=== PATIENT | female | born 1985 | race African-American/Black ===

== ENCOUNTER 2020-01-03 14:32 | Emergency (ER) | payer OTHER, SELFPAY ==
[2020-01-03 14:40] VITALS: BP 139/83; PULSE 83; RESP 16; TEMP 36.8; O2SAT 99
--- NOTE | 2020-01-03 15:06 | ED.FEMALEGU ---
HPI - Female Genitourinary General Chief complaint: Urogenital-Female Stated complaint: possible uti Time Seen by Provider: 01/03/20 14:57 Source: patient and RN notes reviewed Mode of arrival: ambulatory Limitations: no limitations History of Present Illness HPI Narrative: Patient presents today complaining of dysuria, urgency, frequency, lower abdominal pressure since last night, worsened since morning. She also notes that she believes there may be blood in her urine. Denies fever, chills or sweats, nausea or vomiting. She has been taking Tylenol and ibuprofen with some relief. Reports history of UTI a few months ago and was placed on Macrobid. MD elicited complaint: dysuria Related Data Allergies Allergy/AdvReac Type Severity Reaction Status Date / Time Sulfa (Sulfonamide Allergy Mild ITCHING Verified 09/06/13 11:35 Antibiotics) azithromycin Allergy Unknown BURNING, Verified 09/06/13 11:35 ITCHING Review of Systems Review of Systems: Narrative: CONSTITUTIONAL: Denies body aches, fever, chills, or sweats. EYES: Denies visual changes, redness, or discharge. ENT: Denies rhinorrhea, congestion, sore throat, or otalgia. CARDIOVASCULAR: Denies chest pain, palpitations, or edema. RESPIRATORY: Denies cough or dyspnea. GASTROINTESTINAL: Denies nausea, vomiting, or diarrhea. + Lower abdominal pressure GENITOURINARY: + Dysuria, hematuria, urgency, frequency SKIN: Denies rash, itching, or wounds. MUSCULOSKELETAL: Denies back pain, joint pain, or myalgia. NEUROLOGIC: Denies headache, numbness, tingling, or weakness. PSYCH: Denies depression or anxiety. [facility] Past Medical History Medical History (Updated 01/03/20 @ 15:12 by Corinne Elliott, [facility], ) Lupus Comments At time of signature, I have reviewed and agree with nursing past medical, surgical, social and family history unless otherwise noted. Please see nursing chart for further information. There is no relevant family history pertinent to the presenting complaint Exam Narrative: Exam Narrative: GENERAL: Well-appearing, well-nourished, and in no acute distress. HEAD: Normocephalic, atraumatic. EYES: EOMI. No redness or drainage. Conjunctivae normal. ENT: Mucous membranes pink and moist. Nares clear. No rhinorrhea. TMs normal bilaterally. Throat normal. Uvula midline. NECK: Normal AROM. Supple. No lymphadenopathy. CHEST: No respiratory distress. Clear to auscultation. HEART: Regular rate and rhythm. No murmur appreciated. Normal peripheral pulses. ABDOMEN: Soft, nondistended, normal active bowel sounds.-CVAT. + Mild suprapubic tenderness MUSCULOSKELETAL: No bony tenderness. EXTREMITIES: Normal range of motion. No edema. SKIN: Warm, dry, no rash. Capillary refill normal. Normal skin turgor. NEURO: No focal deficits. Alert and oriented x3. Gait steady. PSYCH: Normal affect. No signs of depression or anxiety. Course Vital Signs Vital signs: Vital Signs Temperature 98.3 F 01/03/20 14:40 Pulse Rate 83 01/03/20 14:40 Respiratory Rate 16 01/03/20 14:40 Blood Pressure 139/83 01/03/20 14:40 Pulse Oximetry 99 01/03/20 14:40 Temperature 98.3 F 01/03/20 14:40 Pulse Rate 83 01/03/20 14:40 Respiratory Rate 16 01/03/20 14:40 Blood Pressure 139/83 01/03/20 14:40 Pulse Oximetry 99 01/03/20 14:40 Reviewed. Pt has been instructed to follow up with her PCP regarding her elevated blood pressure today. MDM - Female Genitourinary Differential Diagnosis Differential diagnosis: Likely urinary tract infection, vaginitis, cystitis and other (Pyelonephritis, interstitial cystitis) Lab Data Attestation: I reviewed the patient's lab results. Labs: Urine Glucose Negative Reference Range: Negative Urine Bilirubin Negative Reference Range: Negative Urine Ketone Negative
== END 2020-01-03 15:13 | disposition home or self-care (01) ==
PROVIDERS: Emergency Provider Nurse Practitioner
DX: N30.01 Acute cystitis with hematuria (principal); M32.9 Systemic lupus erythematosus, unspecified
CPT/HCPCS: 81003; 87086; 87088; 99213; G0463

== ENCOUNTER 2022-12-28 10:33 | Emergency (ER) | payer BC, SELFPAY ==
--- NOTE | 2022-12-28 10:36 | ED.GENADULT ---
HPI - General Adult General Chief complaint: Skin/Abscess/Foreign Body Stated complaint: BUmps,Lumps, On Butt Time Seen by Provider: 12/28/22 10:35 Source: patient Mode of arrival: ambulatory Limitations: no limitations History of Present Illness HPI narrative: Patient is a 37-year-old female who presents with her 3 days of tenderness and wound to perineum. Patient has been doing Sitz baths and warm compresses but denies any drainage from area. Patient reports she has history of abscesses but has not had 1 in several years. Denies any fever, chills, nausea, vomiting, diarrhea. Related Data Allergies Allergy/AdvReac Type Severity Reaction Status Date / Time Sulfa (Sulfonamide Allergy Mild ITCHING Verified 12/28/22 10:44 Antibiotics) azithromycin Allergy Unknown BURNING, Verified 12/28/22 10:44 ITCHING Review of Systems Review of Systems: All systems reviewed & are unremarkable except as noted in HPI and below Constitutional: Constitutional: Denies body ache(s), Denies chills, Denies fatigue, Denies fever(s), Denies headache(s), Denies malaise and Denies weakness Eyes: Eyes: Denies blurry vision, Denies irritation and Denies loss of vision ENT: Denies otalgia, Denies headache(s), Denies nasal discharge, Denies sinus pain and Denies sore throat Cardiovascular: Cardiovascular: Denies chest pain, Denies irregular heart rhythm and Denies dyspnea Respiratory: Respiratory: Denies dyspnea Gastrointestinal: Gastrointestinal: Denies abdominal pain, Denies melena, Denies hematochezia, Denies diarrhea, Denies nausea and Denies vomiting Musculoskeletal: Musculoskeletal: Denies back pain, Denies myalgias and Denies arthralgias Integumentary/Breasts: Skin/Breast: Denies pruritus, Denies rash and Reports wounds Neurologic: Denies headache(s), Denies loss of vision and Denies weakness Psychiatric: Psychiatric: Reports no additional psychiatric complaints Endocrine: Endocrine: Denies fatigue PMFSH Past Medical History Medical History Lupus Comments At time of signature, agree with nursing past medical, surgical, social and family history. There is no relevant family history pertinent to the presenting complaint. Exam Const: General: cooperative, healthy appearing, comfortable, no acute distress and well nourished Nutritional Appearance: well nourished Orientation/consciousness: patient oriented x3 Limitations: no limitations HENMT: Head: normal to inspection, normocephalic and atraumatic Ears: hearing grossly normal bilaterally and external ears normal Face/Nose/Sinus: Normal external nose present, normal facial exam and face symmetric Face and sinus: normal facial exam and face symmetric Mouth: Yes lip normal Eyes: General: appearance normal, both eyes and all related structures Alignment and Position: alignment normal and position normal Periorbital: periorbital findings normal Eyelids: eyelids normal Pupils: Equal, round and reactive pupils present EOM: EOMs intact bilaterally Neck: Neck: normal visual inspection, full ROM and supple Chest: Chest palpation & inspection: normal inspection of the chest Resp: Effort & Inspection: normal respiratory effort and able to speak in complete sentences Auscultation: clear to auscultation bilaterally Cardio: Rate: regular rate Rhythm: regular rhythm Heart sounds: S1 normal heart sound present and S2 normal heart sound present GI: Inspection: normal to inspection : External Female Exam: No erythema, externally tender, external swelling and No lesion Female genitals images: 1. 2x2 cm area fluctuance. No surrounding erythema or induration. Center point white with appearance of opening. Skin: General skin exam: normal color and no rashes or lesions noted Neuro: General: patient oriented x3 and moves all extremities Cranial nerves: Yes Equal, round and reactive pupils present Speech: normal speec
[2022-12-28 10:59] VITALS: BP 132/89; PULSE 78; RESP 20; TEMP 36.6; O2SAT 100
== END 2022-12-28 11:18 | disposition home or self-care (01) ==
PROVIDERS: Emergency Provider Nurse Practitioner Family
DX: L02.31 Cutaneous abscess of buttock (principal)
CPT/HCPCS: 99213; G0463

== ENCOUNTER 2023-09-11 12:21 | Emergency (ER) | payer BC, SELFPAY ==
[2023-09-11 12:32] VITALS: BP 135/93; PULSE 80; RESP 16; TEMP 36.9; O2SAT 99
--- NOTE | 2023-09-11 12:38 | ED.FEMALEGU ---
HPI - Female Genitourinary General Chief complaint: Urogenital-Female Stated complaint: STD Testing Time Seen by Provider: 09/11/23 12:38 Source: patient and RN notes reviewed Mode of arrival: ambulatory Limitations: no limitations History of Present Illness HPI Narrative: 38-year-old female presents with concern for possible exposure to STDs. She reports her partner called her and told her he was ?having issues down there.? He did not specify any symptoms for positive STDs. She denies having any symptoms, discharge, dysuria, frequency, urgency. At 1st she denied a history of herpes, however her record indicates she was prescribed Valtrex in June for genital herpes, she then admitted that she does have a history of herpes. She denies any current outbreaks. MD elicited complaint: UTI Related Data Home Medications Medication Instructions Recorded Confirmed acyclovir 400 mg tablet mg 09/11/23 09/11/23 ergocalciferol (vitamin D2) 1,250 09/11/23 mcg (50,000 unit) capsule fluticasone propionate 50 intranasal 09/11/23 mcg/actuation nasal spray,suspension loratadine 10 mg tablet mg 09/11/23 meclizine 25 mg tablet mg 09/11/23 sumatriptan succinate 50 mg tablet mg PO 09/11/23 Allergies Allergy/AdvReac Type Severity Reaction Status Date / Time doxycycline Allergy Intermediate lip Verified 12/29/22 08:14 swelling Sulfa (Sulfonamide Allergy Mild ITCHING Verified 12/28/22 10:44 Antibiotics) azithromycin Allergy Unknown BURNING, Verified 12/28/22 10:44 ITCHING Review of Systems Review of Systems: CONSTITUTIONAL: Denies malaise, chills, sweats, or fever. CARDIOVASCULAR: Denies chest pain, palpitations, or edema. RESPIRATORY: Denies cough or dyspnea. GASTROINTESTINAL: Denies abdominal pain, nausea, vomiting, diarrhea GENITOURINARY: Denies vaginal discharge, dysuria, frequency, urgency, suprapubic pressure. Denies flank pain or hematuria. SKIN: Denies rash or itching. MUSCULOSKELETAL: Denies back pain or myalgia. All systems reviewed & are unremarkable except as noted in HPI and below PMFSH Past Medical History Medical History Lupus Comments At time of signature, agree with nursing past medical, surgical, social and family history. There is no relevant family history pertinent to the presenting complaint Exam Narrative: GENERAL: Well-appearing, well-nourished, and in no acute distress. HEAD: Normocephalic. EYES: PERRLA, conjunctivae clear. NECK: Supple. No lymphadenopathy CHEST: Clear to auscultation. No respiratory distress. HEART: Regular rate and rhythm. SKIN: Warm, dry, no rash. NEURO: Alert and oriented x3. PSYCH: Normal mood and affect Course Course Emergency Course: Patient is aware of diagnosis, understands and agrees to treatment plan. Anticipatory guidance given. Patient agrees to follow-up as directed and is aware of reasons to seek care at the emergency department. Portions of this record may have been created with voice recognition software Level of Care: Express Care Visit Vital Signs Vital signs: Vital Signs Temperature 98.4 F 09/11/23 12:32 Pulse Rate 80 09/11/23 12:32 Respiratory Rate 16 09/11/23 12:32 Blood Pressure 135/93 H 09/11/23 12:32 Pulse Oximetry 99 09/11/23 12:32 Oxygen Delivery Room Air 09/11/23 12:32 Temperature 98.4 F 09/11/23 12:32 Pulse Rate 80 09/11/23 12:32 Respiratory Rate 16 09/11/23 12:32 Blood Pressure 135/93 H 09/11/23 12:32 Pulse Oximetry 99 09/11/23 12:32 Oxygen Delivery Room Air 09/11/23 12:32 Reviewed. MDM - Female Genitourinary MDM Narrative Medical decision making narrative: Exam findings show no acute concerns or changes; patient is non-toxic appearing and is in no distress. Patient is appropriate for outpatient treatment and follow-up. Differential Diagnosis Differential diagnosis: Likely urinary tract infect
[2023-09-11] MEDS: cefTRIAXone 500 MG, LIDOCAINE HCL 1% LOCAL INJ 1 ML IM (12:51)
[2023-09-11 22:32] LABS: Trichomonas Vag PCR NOT DETECTED (NOT DETECTE)
[2023-09-11 22:54] LABS: Chlamydia trachomatis NOT DETECTED (NOT DETECTE); Neisseria gonorrhoeae PCR NOT DETECTED (NOT DETECTE)
== END 2023-09-11 13:05 | disposition home or self-care (01) ==
PROVIDERS: Emergency Provider Nurse Practitioner
DX: Z11.3 Encounter for screening for infections with a predominantly sexual mode of transmission (principal)
CPT/HCPCS: 87491; 87591; 87661; 96372; 99214; G0463; J0696

== ENCOUNTER 2023-11-27 17:58 | Emergency (ER) | payer BC, SELFPAY ==
[2023-11-27 18:07] VITALS: BP 135/92; PULSE 81; RESP 16; TEMP 36.7; O2SAT 100
--- NOTE | 2023-11-27 18:29 | ED.FEMALEGU ---
HPI - Female Genitourinary General Chief complaint: Urogenital-Female Stated complaint: Sore Throat/STD Time Seen by Provider: 11/27/23 18:15 Source: patient Mode of arrival: ambulatory Limitations: no limitations History of Present Illness HPI Narrative: Tatiana is a 38-year-old female patient presenting to the clinic today with complaints of sore throat for the past few days as well as a possible STD. She reports that her partner told her that he had Trichomonas. She denies any vaginal discharge or odor. She would like to be treated for Trichomonas and the clinic today. Would also like to have further STD testing with gonorrhea and chlamydia. Wants to make sure she does not have strep as well. States she has some mild throat pain but not difficult to swallow. No fever, chills, body aches, back pain, or abdominal pain. Related Data Home Medications Medication Instructions Recorded Confirmed acyclovir 400 mg tablet mg 09/11/23 09/11/23 ergocalciferol (vitamin D2) 1,250 09/11/23 mcg (50,000 unit) capsule fluticasone propionate 50 intranasal 09/11/23 mcg/actuation nasal spray,suspension loratadine 10 mg tablet mg 09/11/23 meclizine 25 mg tablet mg 09/11/23 sumatriptan succinate 50 mg tablet mg PO 09/11/23 Allergies Allergy/AdvReac Type Severity Reaction Status Date / Time doxycycline Allergy Intermediate lip Verified 12/29/22 08:14 swelling Sulfa (Sulfonamide Allergy Mild ITCHING Verified 12/28/22 10:44 Antibiotics) azithromycin Allergy Unknown BURNING, Verified 12/28/22 10:44 ITCHING sulfamethoxazole Allergy Itching Verified 11/27/23 18:29 [From Bactrim] trimethoprim [From Bactrim] Allergy Itching Verified 11/27/23 18:29 Review of Systems Review of Systems: Pertinent positives per HPI. Patient denies any fever, chills, rash, headache, visual changes, dizziness, cough, runny nose, sore throat, shortness of breath, chest pain, palpitations, nausea, vomiting, diarrhea, constipation, abdominal pain, or any urinary issues. PMFSH Past Medical History Medical History Lupus Comments At the time of my signature, I reviewed and agree with the nursing past medical, surgical, social, and family history. There is no relevant family history pertinent to the patient complaint. Exam Narrative: General: Well-developed, well nourished, in no apparent distress Head: Normocephalic, atraumatic Eyes: Pupils equally round and reactive to light bilaterally, EOM intact, sclera and conjunctive clear, no discharge, lids normal Ears: TMs intact and clear, ear canals clear, no drainage, grossly hearing normal. Nose: Nares patent, clear discharge, no inflammation, no sinus tenderness. Mouth: Oropharynx red without lesions or masses, good dentition, MMM. Neck: Supple, trachea midline, no enlargement of anterior or posterior cervical nodes, no thyroid masses or goiter palpable. Cardio: Regular rate and rhythm, s1 and s2 normal, no murmur appreciated. Resp: Clear to auscultation bilaterally anteriorly and posteriorly, no rhonchi, rales, wheezing or rubs Abdomen: Soft, pliable, bowel sounds present in all quadrants, non-tender to palpation, no organomegly, no CVAT tenderness. : Deferred Course Course Emergency Course: Portions of this record may have been created with voice recognition software. Level of Care: Express Care Visit Vital Signs Vital signs: Vital Signs Temperature 36.7 C 11/27/23 18:07 Pulse Rate 81 11/27/23 18:07 Respiratory Rate 16 11/27/23 18:07 Blood Pressure 135/92 H 11/27/23 18:07 Pulse Oximetry 100 11/27/23 18:07 Oxygen Delivery Room Air 11/27/23 18:07 Temperature 36.7 C 11/27/23 18:07 Pulse Rate 81 11/27/23 18:07 Respiratory Rate 16 11/27/23 18:07 Blood Pressure 135/92 H 11/27/23 18:07 Pulse Oximetry 100 11/27/23 18:07 Oxygen Delivery Room Air
[2023-11-27 18:36] LABS: EDSTREPNEGPOS1 Negative (Negative)
[2023-11-28 20:26] LABS: Trichomonas Vag PCR NOT DETECTED (NOT DETECTE)
[2023-11-28 20:55] LABS: Chlamydia trachomatis NOT DETECTED (NOT DETECTE); Neisseria gonorrhoeae PCR NOT DETECTED (NOT DETECTE)
== END 2023-11-27 18:31 | disposition home or self-care (01) ==
PROVIDERS: Emergency Provider Nurse Practitioner Family
DX: Z20.2 Contact with and (suspected) exposure to infections with a predominantly sexual mode of transmission (principal); J02.9 Acute pharyngitis, unspecified
CPT/HCPCS: 87081; 87491; 87591; 87661; 87880; 99213; G0463

== ENCOUNTER 2025-03-07 11:51 | Emergency (ER) | payer OTHER, SELFPAY ==
[2025-03-07 12:04] VITALS: BP 169/89; PULSE 76; RESP 18; TEMP 36.4; O2SAT 100
--- NOTE | 2025-03-07 12:04 | ED.EYEPROB ---
HPI - Eye Problem General Chief complaint: Eye Problems Stated complaint: left eye irritation Time Seen by Provider: 03/07/25 11:55 Source: patient Mode of arrival: ambulatory Limitations: no limitations History of Present Illness HPI Narrative: Tatiana is a 39 year old female patient presenting to the clinic today with complaints of left eye irritation/redness. She reports she has had watery eyes bilaterally for the past week but woke up this morning with yellow mucopurulent discharge in the left eye with her eye matted shut. Denies any eye injury or visual changes. No fevers, chills, body aches. No URI symptoms. Related Data Allergies Allergy/AdvReac Type Severity Reaction Status Date / Time doxycycline Allergy Intermediate lip Verified 03/07/25 11:53 swelling Sulfa (Sulfonamide Allergy Mild ITCHING Verified 03/07/25 11:53 Antibiotics) azithromycin Allergy Unknown BURNING, Verified 03/07/25 11:53 ITCHING sulfamethoxazole (From Allergy Itching Verified 03/07/25 11:53 Bactrim) trimethoprim (From Bactrim) Allergy Itching Verified 03/07/25 11:53 Review of Systems Review of Systems: Pertinent positives per HPI. Patient denies any fever, chills, rash, headache, visual changes, dizziness, cough, runny nose, sore throat, shortness of breath, chest pain, palpitations, nausea, vomiting, diarrhea, constipation, abdominal pain, or any urinary issues. [facility] Past Medical History Medical History Lupus Comments At the time of my signature, I reviewed and agree with the nursing past medical, surgical, social, and family history. There is no relevant family history pertinent to the patient complaint. Exam Narrative: General: Well-developed, well nourished, in no apparent distress Head: Normocephalic, atraumatic Eyes: Pupils equally round and reactive to light bilaterally, EOM intact, right sclera and conjunctive clear, no discharge, lids normal, left sclera and conjunctiva injected, red, yellow mucopurulent discharge, lids normal Ears: TMs intact and clear, ear canals clear, no drainage, grossly hearing normal. Nose: Nares patent, no discharge, no inflammation, no sinus tenderness. Mouth: Oropharynx without lesions or masses, good dentition, MMM. Neck: Supple, trachea midline, no enlargement of anterior or posterior cervical nodes, no thyroid masses or goiter palpable. Cardio: Regular rate and rhythm, s1 and s2 normal, no murmur appreciated. Resp: Clear to auscultation bilaterally anteriorly and posteriorly, no rhonchi, rales, wheezing or rubs Course Course Level of Care: Express Care Visit MDM MDM Narrative Medical decision making narrative: At the time of visit patient is resting comfortably on the exam table. Patient appears to be nontoxic. Complaints of left eye irritation/redness. She reports she has had watery eyes bilaterally for the past week but woke up this morning with yellow mucopurulent discharge in the left eye with her eye matted shut. Denies any eye injury or visual changes. No fevers, chills, body aches. No URI symptoms. On exam patient has left eye redness, yellow mucopurulent discharge, sclera and conjunctiva are injected. Plan: I suspect patient has conjunctivitis. Prescription for ofloxacin eyedrops was sent to the pharmacy. Work note was given. Supportive measures were discussed with the patient and they voiced understanding discharge instructions and agrees to treatment plan. Return precautions reviewed Differential Diagnosis Differential Diagnosis: Differential diagnostic considerations for eye problems include corneal abrasion, conjunctivitis, acute iritis, hyphemia, periorbital cellulitis, subconjunctival hemorrhage, glaucoma, corneal ulcer, ruptured globe, foreign body in eye. Discharge Plan Discharge Clinical Impression: Bacterial conjunctivitis Patient Disposition: Home Condition: Stable Instructions: Antibiotic Form, Conjunctivitis (ED) Additional Instructions: Conjunctivitis is considered contagious for 24 hours while on the antibiotic. Practice good hand washing techniques Avoid touching eyes Instill eyedrops as prescribed-ofloxacin May use warm moist washcloth to help remove eye discharge If eyes are matted shut-do not pry eyes open-use a warm moist cloth to loosen matting and wipe matter away from eye May take Tylenol/Motrin as needed for pain or fever May take Benadryl as needed for itching Follow-up with your PCP in 3-5 days if symptoms persist or sooner if they worsen Go to the emergency room if you develop any fever that is not controlled by Tylenol or Motrin, loss of vision, eye pain, increase eye swelling,visual changes, headache, confusion, lethargy, weakness, chest pain, or shortness of breath. Patient Language: Sudanese Prescriptions: New ofloxacin 0.3 % drops See Rx Instructions .ROUTE .COMPLEX 7 Days Qty: 10 0RF Rx Instructions: put 1-2 drps into affected eye(s) every 2-4 h x 2 days, then 1-2 drps 4 times/day days 3-7 Follow-up/Referrals: Mc,Shad [Other] Stand Alone Forms: Work/School Release IP Time of Disposition: 12:23 Quality NIHSS Nursing Documentation ED NIHSS nursing documentation: reviewed/agree
== END 2025-03-07 12:27 | disposition home or self-care (01) ==
PROVIDERS: Emergency Provider Nurse Practitioner Family
DX: H10.9 Unspecified conjunctivitis (principal)
CPT/HCPCS: 99213; G0463